=== PATIENT | female | born 1995 | race Two or more races ===

== ENCOUNTER → 2020-10-06 | Emergency (ER) | payer OTHER ==
[~2020-10-06] VITALS: Ht 160 cm; Wt 83.9 kg
[~2020-10-06] MED LIST: KETO10TA2 PO; ORPHENADRINE C100 MG PO
== END | disposition home or self-care (01) ==
LOC: ER 10:27
DX: M94.0 Chondrocostal junction syndrome [Tietze] (principal); R07.89 Other chest pain

== ENCOUNTER 2024-09-25 19:33 | Emergency (ER) | payer OTHER ==
[~2024-09-25] VITALS: Ht 160 cm; Wt 106.6 kg
== END 2024-09-25 22:19 | disposition home or self-care (01) ==
LOC: ER 19:35
DX: S61.318A Laceration without foreign body of other finger with damage to nail, initial encounter (principal); W26.0XXA Contact with knife, initial encounter; Y93.G3 Activity, cooking and baking; Y92.89 Other specified places as the place of occurrence of the external cause; Y99.8 Other external cause status; R07.0 Pain in throat